=== PATIENT | male | born 1990 | race Caucasian/White ===

== ENCOUNTER 2023-01-02 13:42 | Emergency (ER) | payer OTHER ==
[2023-01-02] MEDS: Diphtheria,Pertussis(Acell),Tetanus Vaccine 0.5 ML Syringe IM ONE (14:14)
[2023-01-02] MEDS: Lidocaine 1% 5 ML VIAL INJECT ONE (14:14)
[2023-01-02] MEDS ORDERED: Acetaminophen/HYDROcodone 325-5 MG Tab PO PRN (15:49)
[2023-01-02] MEDS: Take Home: Acetaminophen/HYDROcodone 325-5 MG, 2 Tab Pack PO ONE (16:44)
[2023-01-02 17:09] VITALS: BP 125/91; PULSE 89
== END 2023-01-02 16:00 | disposition home or self-care (01) ==
LOC: CC.ED 13:42
DX: S61.207A Unspecified open wound of left little finger without damage to nail, initial encounter (principal); F17.210 Nicotine dependence, cigarettes, uncomplicated; Z23 Encounter for immunization; W26.8XXA Contact with other sharp object(s), not elsewhere classified, initial encounter; Y92.89 Other specified places as the place of occurrence of the external cause; Y99.0 Civilian activity done for income or pay
CPT/HCPCS: 73140-F4; 90471; 90715; 99283; 99283-25; A9270-GY; J3490